=== PATIENT | male | born 1940 | race Hispanic/Latino ===

== ENCOUNTER 2017-07-10 15:33 | Outpatient (CLI) | payer MEDICARE, OTHER ==
--- NOTE | 2017-07-10 18:34 | XRay Report ---
FINAL REPORT EXAM: XR CHEST ROUTINE 2V HISTORY: BACTERIAL PNEUMONIA TECHNIQUE: Two views of the chest with 3 images Comparison: None FINDINGS: Patient is extremely kyphotic due to multilevel disc wedges without discrete focal vertebra plana. Lung volumes are low. Heart size cannot be assessed. There is mild left basal atelectasis. No focal infiltrate is identified. There is mild posterior basal scarring. There is mild lateral left basal scarring. IMPRESSION: Anatomic distortion due to the marked kyphosis. Mild left basal scarring. No definite acute focal infiltrate. Heart size cannot be assessed.
== END 2017-07-10 15:34 | disposition home or self-care (01) ==
LOC: SPVIMAG 15:33
PROVIDERS: ATTEND Internal Medicine
DX: J15.9 Unspecified bacterial pneumonia (principal); J98.4 Other disorders of lung; M40.294 Other kyphosis, thoracic region
CPT/HCPCS: 71046

== ENCOUNTER 2017-10-31 08:05 | Outpatient (CLI) | payer MEDICARE, OTHER ==
--- NOTE | 2017-11-05 12:55 | Cat Scan Report ---
CT ABDOMEN AND PELVIS WITHOUT CONTRAST INDICATION: Colicky abdominal pain. COMPARISON: None similar. FINDINGS: Abdomen and pelvis CT performed following oral contrast only. LUNG BASES: Mild scarring at the imaged lung bases anteriorly. At least 2 small right middle lobe calcified granulomas also noted, the larger measuring 0.9 cm. Few coronary and aortic atherosclerotic calcifications. Slight anterior pericardial thickening or fluid measuring 0.6 cm AP, axial image 9. Nonspecific distal esophageal wall prominence/thickening, not excluded for gastroesophageal reflux and/or hiatal hernia, amongst others. ABDOMEN: Please note that sensitivity to detect small visceral lesions is limited due to the absence of intravenous contrast. Grossly unremarkable unenhanced liver, spleen, gallbladder, pancreas, adrenals and IVC. Nonaneurysmal aortoiliac atherosclerotic calcifications. No hydronephrosis with mild nonspecific bilateral perinephric stranding. An indeterminate 0.9 cm left renal cortical hypodensity, axial image 33. Approximately 1.7 cm left lower renal cortical partly exophytic lesion measuring 25 HU also noted, axial image 37, series 2. A 3 mm nonobstructing left renal calculus. No ascites or size significant adenopathy. Opacified GI tract nonobstructive, though a left hemiabdomen opacified small bowel caliber approximately 3.1 cm as on axial image 59, series 2. Decompressed terminal ileum. Normal appendix. Mild to moderate colonic stool/possible constipation. Small fat-containing umbilical hernia with a transverse neck of 1 cm. PELVIS: Proximal sigmoid diverticulosis. Small prostatic calcifications. Grossly unremarkable non-opacified urinary bladder. No free fluid or significant adenopathy. Small fat containing bilateral inguinal hernias. Moderate lumbar levoscoliosis apex about L4 with multilevel asymmetric disc degeneration as narrowing/vacuum phenomenon and spurring. Lower thoracic spine degenerative spurring as well. Lower lumbar facet arthropathy. Left proximal femoral iatrogenic screw tract lucency as on coronal image 99. CONCLUSION: 1. A 1.7 cm left lower renal cortical lesion, incompletely characterized as to a possible hemorrhagic cyst versus an underlying mass/neoplasm on this limited, unenhanced exam. Please also correlate clinically and with prior imaging if available. If none, further evaluation with renal mass protocol CT or MRI may be obtained, as appropriate. 2. No evidence of bowel obstruction with a top normal/borderline left lower quadrant small bowel caliber nonspecific for possible peristalsis or slight ileus. 3. Various other incidental findings, including chronic bibasilar changes, atherosclerosis, small nonobstructing left renal calculus, diverticulosis and advanced spinal degenerative changes, amongst others, as detailed above. Thank you for the opportunity to participate in this patient's care.
== END 2017-10-31 08:06 | disposition home or self-care (01) ==
LOC: CT 08:05
PROVIDERS: ATTEND Internal Medicine
DX: N20.0 Calculus of kidney (principal); J98.4 Other disorders of lung; J84.10 Pulmonary fibrosis, unspecified; I25.10 Atherosclerotic heart disease of native coronary artery without angina pectoris; K42.9 Umbilical hernia without obstruction or gangrene; K57.30 Diverticulosis of large intestine without perforation or abscess without bleeding; K40.20 Bilateral inguinal hernia, without obstruction or gangrene, not specified as recurrent; M41.86 Other forms of scoliosis, lumbar region; M46.04 Spinal enthesopathy, thoracic region; N28.89 Other specified disorders of kidney and ureter
CPT/HCPCS: 74176